=== PATIENT | female | born 1995 | race Caucasian/White ===

== ENCOUNTER 2019-06-08 15:07 | Emergency (ER) | payer OTHER ==
[~2019-06-08] VITALS: Ht 167.6 cm; Wt 95.0 kg
[2019-06-08] MEDS ORDERED: LEVO88TA4 PO (15:22)
[2019-06-08] MEDS ORDERED: BACITRACIN 0.9 GM PACKET OINTMENT TP ONE (16:15)
[2019-06-08] MEDS ORDERED: PERTUSS(ACELL),DIPH,TET VAC/PF 0.5 ML VIAL IM ONE (16:15)
[2019-06-08] MEDS ORDERED: IBUPROFEN 600 MG TABLET PO ONE (17:15)
[2019-06-08] MEDS ORDERED: METHOCARBAMOL 500 MG TABLET PO ONE (17:15)
[2019-06-08 17:58] VITALS: BP 138/84
== END 2019-06-08 18:15 | disposition home or self-care (01) ==
LOC: EMS 15:09
DX: S60.812A Abrasion of left wrist, initial encounter (principal); R03.0 Elevated blood-pressure reading, without diagnosis of hypertension; R07.89 Other chest pain; M54.6 Pain in thoracic spine; Z85.6 Personal history of leukemia; Z79.899 Other long term (current) drug therapy; Z98.890 Other specified postprocedural states; V49.9XXA Car occupant (driver) (passenger) injured in unspecified traffic accident, initial encounter; Y93.89 Activity, other specified; Y92.488 Other paved roadways as the place of occurrence of the external cause; Y99.8 Other external cause status
CPT/HCPCS: 90471; 90715

== ENCOUNTER 2023-03-09 07:51 | Emergency (ER) | payer OTHER ==
[~2023-03-09] VITALS: Ht 167.6 cm; Wt 91.0 kg
[~2023-03-09 07:51] MED LIST: LEVO88TA4 PO
[2023-03-09 07:55] VITALS: TEMP 98.4
[2023-03-09] MEDS ORDERED: LEVO75 PO (07:58)
[2023-03-09] MEDS ORDERED: KETOROLAC TROMETHAMINE 60 MG/2 ML VIAL IM ONE (12:15)
[2023-03-09] MEDS ORDERED: IBUP-1492 PO (12:58)
[2023-03-09 13:15] VITALS: BP 144/98; PULSE 88; RESP 16
== END 2023-03-09 13:17 | disposition home or self-care (01) ==
LOC: EMS 07:51
DX: S29.012A Strain of muscle and tendon of back wall of thorax, initial encounter (principal); E03.9 Hypothyroidism, unspecified; V99.XXXA Unspecified transport accident, initial encounter; Y93.89 Activity, other specified; Y92.89 Other specified places as the place of occurrence of the external cause; Y99.8 Other external cause status
CPT/HCPCS: 99283; 73030; 96372; J1885